=== PATIENT | female | born 1985 | race Caucasian/White ===

== ENCOUNTER 2019-08-04 20:44 | Emergency (ER) | payer MEDICAID ==
[~2019-08-04] VITALS: Ht 157.5 cm; Wt 56.7 kg
--- NOTE | 2019-08-04 20:57 | NUR ---
ED Nurse Note: Patient walked in c/o withdrawal symptoms such as anxiety, depression, insomnia, decrease appetite, heart racing feelings, from substance abuse, pt states she used to take Adderall 75mg for ADD went up to 210mg when she ran out of meds she started taking crystal meth and now pt states she doesnt want to take any meds nor drugs. Noted pt crying, vss, resp even and unlabored, will cont monitor.
[2019-08-04 21:02] VITALS: BP 126/87
--- NOTE | 2019-08-04 21:10 | Emergency Room Report ---
History of Present Illness General Chief Complaint: Substance Abuse Source: Patient Present Illness HPI Is a 34-year-old female with a history of Adderall/Vyvanse and methamphetamine abuse. Presents with chief complaint of withdrawal symptoms. She yesterday and wants to be clean. She is having anxiety. Unable to sleep for almost 24- hour. [place] anxious and nauseous. Had diarrhea. No fever chills. No suicidal thoughts or homicidal thought. No hallucination. Denies any other complaint. Allergies: Uncoded Allergies: SULFA (Allergy, Unknown, 08/04/19) hives, SOB Patient History Past Medical History: see triage record, old chart reviewed Past Surgical History: none Pertinent Family History: none Social History: Reports: drug use Last Menstrual Period: 07/13/2019 Now: No Immunizations: other Reviewed Nursing Documentation: PMH: Agreed; PSxH: Agreed Nursing Documentation-PMH History Of Psychiatric Problem: Yes - depression, anxiety Review of Systems Eye: Denies: eye pain, blurred vision ENT: Denies: ear pain, nose congestion, throat swelling Respiratory: Denies: cough, shortness of breath Cardiovascular: Reports: palpitations; Denies: chest pain Gastrointestinal: Denies: abdominal pain, diarrhea, nausea, vomiting Musculoskeletal: Denies: back pain, joint pain Skin: Denies: rash Psychiatric: Reports: anxiety Neurological: Denies: headache, numbness Endocrine: Denies: increased thirst, increased urine Hematologic/Lymphatic: Denies: easy bruising All Other Systems: negative except mentioned in HPI Physical Exam Vital Signs Date Time Temp Pulse Resp B/P (MAP) Pulse Ox O2 Delivery O2 Flow Rate FiO2 08/04/19 20:48 98.2 88 18 126/87 (100) 98 Vitals normal Sp02 EP Interpretation: reviewed, normal General Appearance: well appearing, no apparent distress, alert Head: normocephalic, atraumatic Eyes: bilateral eye PERRL, bilateral eye EOMI ENT: hearing grossly normal, normal pharynx Neck: full range of motion, supple, no meningismus Respiratory: chest non-tender, lungs clear, normal breath sounds Cardiovascular #1: regular rate, rhythm, no murmur Gastrointestinal: normal bowel sounds, non tender, no mass, no organomegaly, no bruit, non-distended Musculoskeletal: back normal, gait/station normal, normal range of motion Neurologic: alert, oriented x3 Psychiatric: anxious Medical Decision Making Diagnostic Impression: Primary Impression: Methamphetamine abuse ER Course Patient with methamphetamine abuse and withdrawal. Better after Ativan and IV fluid. Will discharge home. Last Vital Signs Date Time Temp Pulse Resp B/P (MAP) Pulse Ox O2 Delivery O2 Flow Rate FiO2 08/04/19 21:02 98.2 89 18 126/87 98 Status: improved Disposition: HOME, SELF-CARE Condition: Stable Scripts Ondansetron (Zofran) 4 Mg Tablet 4 MG ORAL Q6H PRN for Nausea & Vomiting, #30 TAB 0 Refills Prov: Vinayak Gibbons MD 08/04/19 Clonidine Hcl* (CATAPRES*) 0.1 Mg Tablet 0.1 MG ORAL EVERY 8 HOURS for withdraw symptoms, #21 TAB Prov: Vinayak Gibbons MD 08/04/19 Lorazepam* (ATIVAN*) 0.5 Mg Tablet 0.5 MG ORAL THREE TIMES A DAY, #15 TAB Prov: Vinayak Gibbons MD 08/04/19 Patient Instructions: Stimulant Use Disorder-Methamphetamines Additional Instructions: Follow-up with rehab in a week. Follow-up with your doctor in 7 days. Return if worse. Vinayak Gibbons MD Aug 04, 2019 21:10
[2019-08-04] MEDS ORDERED: LORazepam Inj 2mg/ml 1ml IV ONE (21:15)
[2019-08-04] MEDS ORDERED: ATIVAN0.5 MG ORAL (22:06)
[2019-08-04] MEDS ORDERED: ZOFRAN4 MG ORAL (22:06)
[2019-08-04] MEDS ORDERED: CATAPRES0.1 MG ORAL (22:06)
[2019-08-04 22:14] VITALS: BP 123/81
--- NOTE | 2019-08-04 22:14 | NUR ---
ED Nurse Note: Pt cleared by ERMD for discharge. DC instructions/prescription was given and explained to pt, educate the patient to see pcp or return to ER for any changes in condition and verbalized understanding of teachings. All medical deviecs such as ID band and IV line removed. Pt is AAO x4, ambulatory and left with all personal belongings.
== END 2019-08-04 22:14 | disposition home or self-care (01) ==
LOC: EMR 21:24
DX: F15.10 Other stimulant abuse, uncomplicated (principal); F32.9 Major depressive disorder, single episode, unspecified; F41.9 Anxiety disorder, unspecified; Z88.2 Allergy status to sulfonamides
CPT/HCPCS: 96361; 96374; 96375; 99284; J2405